=== PATIENT | male | born 1975 | race African-American/Black ===

== ENCOUNTER 2017-03-17 14:05 | Emergency (ER) | payer OTHER ==
[~2017-03-17] VITALS: Ht 182.9 cm; Wt 84.0 kg
[~2017-03-17 14:05] MED LIST: TRIA.1%T TOP; Z.0.NO CURRENT MEDS
[2017-03-17 14:06] VITALS: BP 132/65; PULSE 64; RESP 18; TEMP 98.8; O2SAT 96
[2017-03-17] MEDS ORDERED: ROBA750T PO (14:27)
[2017-03-17] MEDS ORDERED: IBUP-232 PO (14:27)
[2017-03-17] MEDS ORDERED: IBUPROFEN 600 MG TAB PO ONE (14:30)
[2017-03-17] MEDS ORDERED: METHOCARBAMOL 500 MG TAB PO ONE (14:30)
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
== END 2017-03-17 14:44 | disposition home or self-care (01) ==
LOC: NEPK 14:05
DX: S16.1XXA Strain of muscle, fascia and tendon at neck level, initial encounter (principal); V43.52XA Car driver injured in collision with other type car in traffic accident, initial encounter
CPT/HCPCS: 99283